=== PATIENT | female | born 1985 | race Caucasian/White ===

== ENCOUNTER 2016-05-16 12:40 | Emergency (ER) | payer OTHER, MEDICAID ==
--- NOTE | 2016-05-16 13:08 | ER Document Report ---
ED Medical Screen (RME) - General Chief Complaint: Leg Pain Stated Complaint: FEVER/POSSIBLE CELLULITIS Notes: This 31-year-old female patient comes in complaining of possible cellulitis to the right leg. She has a long history of a venous stasis ulcer treated at wound care clinic on the right lower extremity. That ulcer had cleared up. 3 days ago she was at a birthday [employer] and possibly contacted hint. The right medial proximal lower leg had a red patch which has since progressed to much of the leg. There is extreme itching. There is now pain also. Exam suggests this may be a rooster dermatitis with complicating cellulitis. I have greeted and performed a rapid initial assessment of this patient. A comprehensive ED assessment and evaluation of the patient, analysis of test results and completion of the medical decision making process will be conducted by additional ED providers. TRAVEL OUTSIDE OF THE [place] IN LAST 30 DAYS: No - Related Data Allergies/Adverse Reactions: latex [Latex] Allergy (Mild, Verified 03/05/15 18:19) Hives magnesium Allergy (Verified 05/16/16 12:51) Past Medical History - Past Medical History Cardiac Medical History: Reports: Hx Hypercholesterolemia, Hx Hypertension Pulmonary Medical History: Reports: Hx Bronchitis, Hx Pneumonia Denies: Hx Tuberculosis Endocrine Medical History: Reports: Hx Diabetes Mellitus Type 2 - gestational Renal/ Medical History: Reports: Hx Kidney Stones, Hx Ovarian Cysts. Denies: Hx Peritoneal Dialysis Musculoskeltal Medical History: Reports Hx Musculoskeletal Trauma Psychiatric Medical History: Reports: Hx Anxiety Past Surgical History: Reports: Hx Section, Hx Tonsillectomy - adnoids. Denies: Hx Pacemaker - Immunizations Immunizations up to date: Yes Hx Diphtheria, Pertussis, Tetanus Vaccination: Yes - < 5yrs, unknown date Physical Exam - Vital signs Vitals: Temp Pulse Resp BP Pulse Ox 98.5 F 114 H 16 131/84 H 99 05/16/16 12:53 05/16/16 12:53 05/16/16 12:53 05/16/16 12:53 05/16/16 12:53 Course - Vital Signs Vital signs: Temp Pulse Resp BP Pulse Ox 98.5 F 114 H 16 131/84 H 99 05/16/16 12:53 05/16/16 12:53 05/16/16 12:53 05/16/16 12:53 05/16/16 12:53
[2016-05-16 13:37] LABS: ABSOLUTE BASOPHILS # (AUTO) 0.1 10^3/uL (0.0-0.2); ABSOLUTE LYMPHOCYTES (AUTO) 2.3 10^3/uL (0.5-4.7); ABSOLUTE NEUT (AUTO) 8.6 10^3/uL (1.7-8.2); BASOPHILS % (AUTO) 0.6 % (0-2); EOSINOPHILS % (AUTO) 0.1 % (0-6); HEMATOCRIT 38.2 % (36.0-47.0); HEMOGLOBIN 13.3 g/dL (12.0-15.5); HGB HCT DIFFERENCE 1.7; LYMPHOCYTES % (AUTO) 19.4 % (13-45); MEAN CORPUSCULAR HEMOGLOBIN 28.6 pg (27.0-33.4); MEAN CORPUSCULAR HGB CONC 34.9 g/dL (32.0-36.0); MEAN CORPUSCULAR VOLUME 82 fl (80-97); MONOCYTES % (AUTO) 8.2 % (3-13); RED BLOOD COUNT 4.66 10^6/uL (3.72-5.28); RED CELL DISTRIBUTION WIDTH 14.7 % (11.5-14.0); SEGMENTED NEUTROPHILS % (AUTO) 71.7 % (42-78); WHITE BLOOD COUNT 12.1 10^3/uL (4.0-10.5)
[2016-05-16 13:52] LABS: ALANINE AMINOTRANSFERASE 29 U/L (9-52); ALBUMIN 4.3 g/dL (3.5-5.0); ALKALINE PHOSPHATASE 84 U/L (38-126); ANION GAP 15 (5-19); ASPARTATE AMINO TRANSFERASE 22 U/L (14-36); BILIRUBIN,DIRECT 0.5 mg/dL (0.0-0.4); BLOOD UREA NITROGEN 12 mg/dL (7-20); CALCIUM 9.4 mg/dL (8.4-10.2); CARBON DIOXIDE 21 mmol/L (22-30); CHLORIDE 104 mmol/L (98-107); GLUCOSE 127 mg/dL (75-110); POTASSIUM 4.2 mmol/L (3.6-5.0); SODIUM 139.8 mmol/L (137-145); TOTAL PROTEIN 8.1 g/dL (6.3-8.2)
[2016-05-16] MEDS ORDERED: HYDROCODONE/ACETAMINOPHEN 5-325 MG TABLET PO ONE (16:47)
[2016-05-16] MEDS ORDERED: ACETAMINOPHEN 325 MG TABLET PO ONE (17:14)
[2016-05-16] MEDS ORDERED: SULFAMETHOXAZOLE/TRIMETHOPRIM 800-160 MG TABLET PO ONE (17:17)
[2016-05-16] MEDS ORDERED: PREDNISONE 20 MG TABLET PO ONE (17:17)
--- NOTE | 2016-05-16 18:26 | ER Document Report ---
ED Extremity Problem, Lower - General Chief Complaint: Leg Pain Stated Complaint: FEVER/POSSIBLE CELLULITIS Mode of Arrival: Ambulatory Information source: Patient Notes: 31 y/o F presents to ED complaining of redness, swelling, and pain to right lower leg. Patient reports 3 days ago thinks she came in contact with poison koki and had localized area of redness and itching which has increased over the last 3 days and has become painful and warm. Reports history of cellulitis to same area in the past with similar symptoms. Reports subjective fever, nausea/ vomiting, chest pain or shortness of breath. TRAVEL OUTSIDE OF THE [place] IN LAST 30 DAYS: No - HPI Patient complains to provider of: Pain, Swelling Location: Leg Onset/Duration: Persistent Quality of pain: Achy Severity: Moderate Pain Level: 4 Recent injury: No Exacerbated by: Movement, Walking Relieved by: Elevation, Rest - Related Data Allergies/Adverse Reactions: latex [Latex] Allergy (Mild, Verified 03/05/15 18:19) Hives magnesium Allergy (Verified 05/16/16 12:51) Past Medical History - General Information source: Patient - Social History Smoking Status: Current Every Day Smoker Chew tobacco use (# tins/day): No Frequency of alcohol use: None Drug Abuse: None Lives with: Family Family History: Reviewed & Not Pertinent Patient has suicidal ideation: No Patient has homicidal ideation: No - Past Medical History Cardiac Medical History: Reports: Hx Hypercholesterolemia, Hx Hypertension Pulmonary Medical History: Reports: Hx Bronchitis, Hx Pneumonia Denies: Hx Tuberculosis Endocrine Medical History: Reports: Hx Diabetes Mellitus Type 2 - gestational Renal/ Medical History: Reports: Hx Kidney Stones, Hx Ovarian Cysts. Denies: Hx Peritoneal Dialysis Musculoskeltal Medical History: Reports Hx Musculoskeletal Trauma Psychiatric Medical History: Reports: Hx Anxiety Past Surgical History: Reports: Hx Section, Hx Tonsillectomy - adnoids. Denies: Hx Pacemaker - Immunizations Immunizations up to date: Yes Hx Diphtheria, Pertussis, Tetanus Vaccination: Yes - < 5yrs, unknown date Review of Systems - Review of Systems Constitutional: No symptoms reported EENT: No symptoms reported Cardiovascular: No symptoms reported Respiratory: No symptoms reported Gastrointestinal: No symptoms reported Genitourinary: No symptoms reported Female Genitourinary: No symptoms reported Musculoskeletal: See HPI Skin: No symptoms reported Hematologic/Lymphatic: No symptoms reported Neurological/Psychological: No symptoms reported -: Yes All other systems reviewed and negative Physical Exam - Vital signs Vitals: Temp Pulse Resp BP Pulse Ox 98.5 F 114 H 16 131/84 H 99 05/16/16 12:53 05/16/16 12:53 05/16/16 12:53 05/16/16 12:53 05/16/16 12:53 - General General appearance: Appears well, Alert In distress: None - HEENT Head: Normocephalic, Atraumatic Eyes: Normal Conjunctiva: Normal Pupils: PERRL - Respiratory Respiratory status: No respiratory distress Chest status: Nontender Breath sounds: Normal Chest palpation: Normal - Cardiovascular Rhythm: Regular Heart sounds: Normal auscultation Murmur: No Pulses: Normal: Radial, Posterior tibial, Dorsalis pedis Normal capillary refill: Yes - Abdominal Inspection: Normal Distension: No distension Bowel sounds: Normal Tenderness: Nontender Organomegaly: No organomegaly - Back Back: Normal, Nontender - Extremities General upper extremity: Normal inspection, Nontender, Normal color, Normal ROM , Normal strength, Normal temperature. No: Edema General lower extremity: Normal inspection, Nontender, Normal color, Normal ROM , Normal strength, Normal temperature, Normal weight bearing, Other - mild localized diffuse erythema, warmth, and tenderness to anterior lateral right lower leg from upper tib-fib area to ankle. Negative Homans sign. Distal neurovascular function intact with immediate capillary refill and palpable pulses. Sensation intact. No fluctuance, drainage, or weeping.. No: Edema, Edda's sign Course - Re-evaluation Re-evalutation: 05/16/16 18:15 Patient hemodynamically stable, afebrile, no distress. Patient presentation suggestive of contact dermatitis versus mild superimposed cellulitis at this time. No medication of abscess or DVT. Patient appears stable for discharge and agrees with home care, follow-up, strict ED return precautions. Patient presentation, findings, ED care, and plan discussed with ED physician Dr. Choe who evaluated patient in the ED and concurs with evaluation and treatment. - Vital Signs Vital signs: Temp Pulse Resp BP Pulse Ox 99.1 F 108 H 19 134/74 H 97 05/16/16 18:45 05/16/16 18:45 05/16/16 18:45 05/16/16 18:45 05/16/16 18:45 - Laboratory Result Diagrams: 05/16/16 13:10 05/16/16 13:10 Laboratory results interpreted by me: 05/16/16 05/16/16 13:10 13:10 WBC 12.1 H RDW 14.7 H Absolute Neutrophils 8.6 H Carbon Dioxide 21 L Glucose 127 H Direct Bilirubin 0.5 H Discharge - Discharge Clinical Impression: Cellulitis Qualifiers: Site of cellulitis: extremity Site of cellulitis of extremity: lower extremity Laterality: right Qualified Code(s): L03.115 - Cellulitis of right lower limb Contact dermatitis Qualifiers: Contact dermatitis type: unspecified Contact dermatitis trigger: unspecified trigger Qualified Code(s): L25.9 - Unspecified contact dermatitis, unspecified cause Condition: Stable Disposition: HOME, SELF-CARE Instructions: Contact Dermatitis ([facility]), Trimethoprim-Sulfa ([facility]), Steroid Medication, Cellulitis ([facility]), Elevation & Warmth ([facility]), Oral Narcotic Medication ([facility]) Additional Instructions: Drink plenty of fluids. Monitor your blood sugar daily. Follow-up with your primary care provider in the next 1-2 days. Return to the emergency department for any worsening symptoms or concerns. Prescriptions: Hydrocodone/Acetaminophen [[place] 5-325 mg Tablet] 1 tab PO Q6H PRN #8 tablet PRN Reason: Prednisone [Deltasone 10 mg Tablet] 10 mg PO ASDIR PRN #21 tablet PRN Reason: Sulfamethoxazole/Trimethoprim [Bactrim Ds Tablet] 1 tab PO BID 10 Days Forms: Elevated Blood Pressure Referrals: LAKSHMI VILLALBA PA [NO LOCAL MD] - Follow up tomorrow
[2016-05-16 18:56] VITALS: BP 134/74
== END 2016-05-16 18:45 | disposition home or self-care (01) ==
LOC: ER 12:40
DX: L03.115 Cellulitis of right lower limb (principal); L25.9 Unspecified contact dermatitis, unspecified cause; M79.604 Pain in right leg; F17.200 Nicotine dependence, unspecified, uncomplicated; E78.00 Pure hypercholesterolemia, unspecified; I10 Essential (primary) hypertension; Z87.442 Personal history of urinary calculi; Z91.040 Latex allergy status
CPT/HCPCS: 99283; 36415; 84703; 85025; 80053; J7512

== ENCOUNTER 2017-05-16 17:37 | Inpatient (IN) | payer OTHER, MEDICAID ==
[2017-05-16] MEDS ORDERED: ONDANSETRON HCL INJ/PF 4 MG/2 ML SDV IV ONE (18:35)
[2017-05-16] MEDS ORDERED: MORPHINE SULFATE 10 MG/ML INJ IV ONE (18:35)
[2017-05-16] MEDS ORDERED: NORMAL SALINE 1000 ML 1,000 ML IV ONE (18:35)
[2017-05-16] MEDS ORDERED: VANCOMYCIN HCL INJ 1000 MG VIAL IV ONE (18:36)
--- NOTE | 2017-05-16 18:37 | ER Document Report ---
ED Medical Screen (RME) - General Chief Complaint: Leg Pain Stated Complaint: FEVER, LEG PAIN Time Seen by Provider: 05/16/17 18:34 Notes: Patient states she has had cellulitis 7 times in the right lower extremity. She states once again she feels she has cellulitis that her lower extremity is erythematous and warm and painful. She states 2 weeks ago she was started on doxycycline and finished a one-week course but the cellulitis is now worse. TRAVEL OUTSIDE OF THE [place] IN LAST 30 DAYS: No - Related Data Allergies/Adverse Reactions: latex [Latex] Allergy (Mild, Verified 05/16/17 17:38) Hives magnesium Allergy (Verified 05/16/17 17:38) Home Medications: metformin Past Medical History - Social History Chew tobacco use (# tins/day): No Frequency of alcohol use: Social Drug Abuse: None - Past Medical History Cardiac Medical History: Reports: Hx Hypercholesterolemia, Hx Hypertension Pulmonary Medical History: Reports: Hx Bronchitis, Hx Pneumonia Denies: Hx Tuberculosis Endocrine Medical History: Reports: Hx Diabetes Mellitus Type 2 - gestational Renal/ Medical History: Reports: Hx Kidney Stones, Hx Ovarian Cysts. Denies: Hx Peritoneal Dialysis Musculoskeltal Medical History: Reports Hx Musculoskeletal Trauma Psychiatric Medical History: Reports: Hx Anxiety Past Surgical History: Reports: Hx Section, Hx Tonsillectomy - adnoids , Hx Tubal Ligation. Denies: Hx Pacemaker - Immunizations Immunizations up to date: Yes Hx Diphtheria, Pertussis, Tetanus Vaccination: Yes - < 5yrs, unknown date Physical Exam - Vital signs Vitals: Temp Pulse Resp BP Pulse Ox 99.8 F 124 H 24 H 138/103 H 95 05/16/17 17:48 05/16/17 17:48 05/16/17 17:48 05/16/17 17:48 05/16/17 17:48 Course - Vital Signs Vital signs: Temp Pulse Resp BP Pulse Ox 99.8 F 124 H 24 H 138/103 H 95 05/16/17 17:48 05/16/17 17:48 05/16/17 17:48 05/16/17 17:48 05/16/17 17:48 Doctor's Discharge - Discharge Referrals: LAKSHMI VILLALBA PA-C [Primary Care Provider] - Follow up as needed
[2017-05-16 19:44] LABS: ABSOLUTE BASOPHILS # (AUTO) 0.1 10^3/uL (0.0-0.2); ABSOLUTE LYMPHOCYTES (AUTO) 1.5 10^3/uL (0.5-4.7); ABSOLUTE MONOCYTES (AUTO) 0.9 10^3/uL (0.1-1.4); ABSOLUTE NEUT (AUTO) 13.5 10^3/uL (1.7-8.2); BASOPHILS % (AUTO) 0.5 % (0-2); EOSINOPHILS % (AUTO) 0.3 % (0-6); LYMPHOCYTES % (AUTO) 9.6 % (13-45); MEAN CORPUSCULAR HEMOGLOBIN 28.8 pg (27.0-33.4); MEAN CORPUSCULAR HGB CONC 34.1 g/dL (32.0-36.0); MEAN CORPUSCULAR VOLUME 85 fl (80-97); MONOCYTES % (AUTO) 5.4 % (3-13); PLATELET COUNT 285 10^3/uL (150-450); RED BLOOD COUNT 4.49 10^6/uL (3.72-5.28); RED CELL DISTRIBUTION WIDTH 13.7 % (11.5-14.0); SEGMENTED NEUTROPHILS % (AUTO) 84.2 % (42-78); TOTAL CELLS COUNTED % (AUTO) 100 %; WHITE BLOOD COUNT 16.1 10^3/uL (4.0-10.5)
[2017-05-16 19:46] LABS: VENOUS BLOOD BASE EXCESS 0.5 mmol/L; VENOUS BLOOD HCO3 23.5 mmol/L (20-32); VENOUS BLOOD PH 7.47 (7.30-7.42)
[2017-05-16 19:59] LABS: APPEARANCE,URINE SLIGHTLY-CLOUDY; BILIRUBIN,URINE NEGATIVE (NEGATIVE); COLOR,URINE YELLOW; GLUCOSE, URINE NEGATIVE (NEGATIVE); KETONES,URINE TRACE mg/dL (NEGATIVE); LEUKOCYTE ESTERASE,URINE NEGATIVE (NEGATIVE); NITRITE,URINE NEGATIVE (NEGATIVE); PROTEIN,URINE NEGATIVE (NEGATIVE); URINE SPECIFIC GRAVITY 1.018; UROBILINOGEN,URINE NEGATIVE mg/dL (<2.0)
[2017-05-16 20:00] LABS: ALANINE AMINOTRANSFERASE 48 U/L (9-52); ALBUMIN 4.2 g/dL (3.5-5.0); ALKALINE PHOSPHATASE 74 U/L (38-126); ANION GAP 12 (5-19); ASPARTATE AMINO TRANSFERASE 27 U/L (14-36); BILIRUBIN,DIRECT 0.5 mg/dL (0.0-0.4); BILIRUBIN,TOTAL 0.6 mg/dL (0.2-1.3); BLOOD UREA NITROGEN 13 mg/dL (7-20); CALCIUM 9.5 mg/dL (8.4-10.2); CARBON DIOXIDE 23 mmol/L (22-30); CHLORIDE 100 mmol/L (98-107); GLUCOSE 145 mg/dL (75-110); POTASSIUM 4.3 mmol/L (3.6-5.0); SODIUM 134.8 mmol/L (137-145); TOTAL PROTEIN 7.5 g/dL (6.3-8.2)
--- NOTE | 2017-05-16 22:05 | ER Document Report ---
ED General - General Chief Complaint: Leg Pain Stated Complaint: FEVER, LEG PAIN Time Seen by Provider: 05/16/17 18:34 TRAVEL OUTSIDE OF THE [place] IN LAST 30 DAYS: No - HPI Notes: Patient is a 32-year-old female with a history of type 2 diabetes and obstructive sleep apnea who presents to the ED complaining of her right anterior lower leg 1 day. Patient states that she also began having a fever today. Patient states that she has had cellulitis in this leg numerous times and was most recently placed on doxycycline 2 weeks ago which she finished a one -week course of. Patient states that that did seem to help, but symptoms worsened today. Patient has not noticed any other obvious abscess or purulent discharge. Patient states that she did have a history of MRSA. Patient states that she is otherwise eating and drinking without any difficulties. She is urinating normally and having normal bowel movements. The pain does not radiate. She denies any previous history of DVT or PE. Denies any IV drug use. Denies any neck pain, URI, sore throat, chest pain, palpitations, syncope , cough, shortness of breath, wheeze, dyspnea, abdominal pain, nausea/vomiting/ diarrhea, urinary retention, dysuria, hematuria, loss of control of bowel or bladder, numbness/tingling, saddle anesthesia, muscle paralysis/weakness. - Related Data Allergies/Adverse Reactions: latex [Latex] Allergy (Mild, Verified 05/16/17 17:38) Hives magnesium Allergy (Verified 05/16/17 17:38) Home Medications: metformin Past Medical History - Social History Smoking Status: Current Every Day Smoker Chew tobacco use (# tins/day): No Frequency of alcohol use: Social Drug Abuse: None Family History: Reviewed & Not Pertinent Patient has suicidal ideation: No Patient has homicidal ideation: No - Past Medical History Cardiac Medical History: Reports: Hx Hypercholesterolemia, Hx Hypertension Pulmonary Medical History: Reports: Hx Bronchitis, Hx Pneumonia Denies: Hx Tuberculosis Endocrine Medical History: Reports: Hx Diabetes Mellitus Type 2 - gestational Renal/ Medical History: Reports: Hx Kidney Stones, Hx Ovarian Cysts. Denies: Hx Peritoneal Dialysis Musculoskeltal Medical History: Reports Hx Musculoskeletal Trauma Psychiatric Medical History: Reports: Hx Anxiety Past Surgical History: Reports: Hx Section, Hx Tonsillectomy - adnoids , Hx Tubal Ligation. Denies: Hx Pacemaker - Immunizations Immunizations up to date: Yes Hx Diphtheria, Pertussis, Tetanus Vaccination: Yes - < 5yrs, unknown date Review of Systems - Review of Systems -: Yes All other systems reviewed and negative Physical Exam - Vital signs Vitals: Temp Pulse Resp BP Pulse Ox 99.8 F 124 H 24 H 138/103 H 95 05/16/17 17:48 05/16/17 17:48 05/16/17 17:48 05/16/17 17:48 05/16/17 17:48 - Notes Notes: PHYSICAL EXAMINATION: GENERAL: Well-appearing, well-nourished and in no acute distress. Obese. Answers questions appropriately. A&Ox4. HEAD: Atraumatic, normocephalic. NECK: Normal range of motion, supple without lymphadenopathy LUNGS: Breath sounds clear to auscultation bilaterally and equal. No wheezes rales or rhonchi. HEART: Regular rate and rhythm without murmurs, rubs, gallops. Musculoskeletal: Rt leg: FROM to passive/active. Strength 5+/5. N/v intact distal. Edda neg. Extremities: trace pitting edema to cellulitic area rt leg. Peripheral pulses 2+. Capillary refill less than 3 seconds. NEUROLOGICAL: Normal speech, normal gait. Normal sensory, motor exams PSYCH: Normal mood, normal affect. SKIN: erythema, warmth, edema, mild induration to the rt anterior and medial lower leg in large area. No obvious abscess or discharge. Course - Re-evaluation Re-evalutation: 05/16/17 22:10 Patient presented with a fever, since improved status post medication. Patient also presents with cellulitis right lower leg with a white count of 16.1, left shift. IV antibiotics started and other labs obtained including a blood culture. I will review this case with Dr. Arroyo for admission for IV antibiotics. Patient is in agreement with this plan. 05/16/17 22:15 Dr. Arroyo accepted patient for admission. - Vital Signs Vital signs: Temp Pulse Resp BP Pulse Ox 99.8 F 124 H 24 H 138/103 H 95 05/16/17 17:48 05/16/17 17:48 05/16/17 17:48 05/16/17 17:48 05/16/17 17:48 - Laboratory Result Diagrams: 05/16/17 19:10 05/16/17 19:10 Laboratory results interpreted by me: 05/16/17 05/16/17 05/16/17 19:10 19:10 19:10 WBC 16.1 H Seg Neutrophils % 84.2 H Lymphocytes % 9.6 L Absolute Neutrophils 13.5 H VBG pH 7.47 H VBG pCO2 33.0 L Sodium 134.8 L Glucose 145 H Direct Bilirubin 0.5 H Urine Ketones Urine Blood 05/16/17 19:10 WBC Seg Neutrophils % Lymphocytes % Absolute Neutrophils VBG pH VBG pCO2 Sodium Glucose Direct Bilirubin Urine Ketones TRACE H Urine Blood SMALL H Discharge - Discharge Clinical Impression: Cellulitis of right lower extremity Condition: Stable Disposition: ADMITTED OBSERVATION Admitting Provider: Hospitalist - Dr. Arroyo Unit Admitted: Telemetry Referrals: LAKSHMI VILLALBA PA-C [Primary Care Provider] - Follow up as needed
[2017-05-16] MEDS ORDERED: MAGNESIUM HYDROXIDE SUSP 30 ML UDCUP PO PRN (22:14)
[2017-05-16] MEDS ORDERED: MAG HYDROX/AL HYDROX/SIMETH SUSP 30 ML UDCUP PO PRN (22:14)
[2017-05-16] MEDS ORDERED: NORMAL SALINE 1000 ML 1,000 ML IV SCH (22:15)
[2017-05-16] MEDS ORDERED: INSULIN LISPRO 100 UNIT/ML 3 ML VIAL SUBCUT PRN (22:23)
[2017-05-16] MEDS ORDERED: GLUCAGON,HUMAN RECOMB 1 MG INJ IM PRN (22:23)
[2017-05-16] MEDS ORDERED: DEXTROSE 40% GEL 15 GM TUBE PO PRN ×2 (22:23)
[2017-05-16] MEDS ORDERED: DEXTROSE 50%-WATER 25 GM/50 ML DISP.SYRIN IV PRN ×2 (22:23)
[2017-05-17] MEDS: ACETAMINOPHEN 325 MG TABLET PO PRN ×2 (01:37→09:03)
[2017-05-17] MEDS: HEPARIN SOD (PORCINE) 5,000 UNIT/ML 1 ML SYRINGE SUBCUT SCH ×3 (05:08→22:02)
--- NOTE | 2017-05-17 06:13 | PDOC H&P ---
History of Present Illness Admission Date/PCP: 05/16/17 22:23 LAKSHMI VILLALBA PA-C Patient complains of: Leg pain and erythema History of Present Illness: DAYNA ALLEN is a 32 year old female with a past medical history of morbid obesity, obstructive sleep apnea, diabetes, right leg cellulitis. Patient presents with 24 hours of erythema and pain to the anterior aspect the right lower leg. No open ulcer or drainage. Patient admits multiple previous episodes and has used prophylactic antibiotics chronically. Patient otherwise feels well. She started on empiric vancomycin and referred to the hospitalist for admission. Past Medical History Cardiac Medical History: Reports: Hyperlipidema, Hypertension Pulmonary Medical History: Reports: Bronchitis, Pneumonia Denies: Tuberculosis Endocrine Medical History: Reports: Diabetes Mellitus Type 2 - gestational Psychiatric Medical History: Denies: Depression Past Surgical History Past Surgical History: Reports: Section, Tonsillectomy - adnoids, Tubal Ligation Denies: Pacemaker Social History Information Source: Patient Lives with: Spouse/Significant other Smoking Status: Current Every Day Smoker Cigarettes Packs Per Day: 1 Frequency of Alcohol Use: Rare Hx Recreational Drug Use: No Drugs: None Hx Prescription Drug Abuse: No - Advance Directive Resuscitation Status: Full Code Family History Family History: Hypertension Parental Family History Reviewed: Yes Children Family History Reviewed: Yes Sibling(s) Family History Reviewed.: Yes Medication/Allergy Home Medications: Glyburide/Metformin HCl [Glyburide-Metformin 2.5-500 mg] 1 tab PO BID 03/05/15 Vit/Iron Fum/Folic AC [ Tablet] 1 tab PO DAILY 03/05/15 Hydrocodone/Acetaminophen [[place] 5-325 mg Tablet] 1 tab PO Q6H PRN #8 tablet 12/22 Prednisone [Deltasone 10 mg Tablet] 10 mg PO ASDIR PRN #21 tablet 05/16/16 Sulfamethoxazole/Trimethoprim [Bactrim Ds Tablet] 1 tab PO BID 10 Days tablet 05/16/16 Allergies/Adverse Reactions: latex [Latex] Allergy (Mild, Verified 05/16/17 17:38) Hives magnesium Allergy (Verified 05/16/17 17:38) Review of Systems Constitutional: ABSENT: chills, fever(s), headache(s), weight gain, weight loss Eyes: ABSENT: visual disturbances Ears: ABSENT: hearing changes Cardiovascular: ABSENT: chest pain, dyspnea on exertion, edema, orthropnea, palpitations Respiratory: ABSENT: cough, hemoptysis Gastrointestinal: ABSENT: abdominal pain, constipation, diarrhea, hematemesis, hematochezia, nausea, vomiting Genitourinary: ABSENT: dysuria, hematuria Musculoskeletal: ABSENT: joint swelling Integumentary: ABSENT: rash, wounds Neurological: ABSENT: abnormal gait, abnormal speech, confusion, dizziness, focal weakness, syncope Psychiatric: ABSENT: anxiety, depression, homidical ideation, suicidal ideation Endocrine: ABSENT: cold intolerance, heat intolerance, polydipsia, polyuria Hematologic/Lymphatic: ABSENT: easy bleeding, easy bruising Physical Exam Vital Signs: Temp Pulse Resp BP Pulse Ox 100.8 F H 108 H 27 H 111/54 L 97 05/16/17 23:46 05/17/17 04:05 05/17/17 02:01 05/17/17 02:01 05/17/17 02:01 General appearance: PRESENT: cooperative, mild distress, morbidly obese. ABSENT : disheveled Head exam: PRESENT: atraumatic. ABSENT: normocephalic, other Eye exam: PRESENT: conjunctiva pink, EOMI, PERRLA. ABSENT: scleral icterus Ear exam: PRESENT: normal external ear exam Mouth exam: PRESENT: moist, tongue midline Neck exam: ABSENT: carotid bruit, JVD, lymphadenopathy, thyromegaly Respiratory exam: PRESENT: clear to auscultation justin. ABSENT: rales, rhonchi, wheezes Cardiovascular exam: PRESENT: RRR. ABSENT: diastolic murmur, rubs, systolic murmur Pulses: PRESENT: normal dorsalis pedis pul Vascular exam: PRESENT: normal capillary refill GI/Abdominal exam: PRESENT: normal bowel sounds, soft. ABSENT: distended, guarding, mass, organolmegaly, rebound, tenderness Rectal exam: PRESENT: deferred Extremities exam: PRESENT: tenderness - Right leg with 1+ edema, 8 x 10 cm circumferential erythema without ulcer, +1 edema Neurological exam: PRESENT: alert, awake, oriented to person, oriented to place , oriented to time, oriented to situation, CN II-XII grossly intact. ABSENT: motor sensory deficit Psychiatric exam: PRESENT: appropriate affect, normal mood. ABSENT: homicidal ideation, suicidal ideation Skin exam: PRESENT: warm - Anterior aspect of right leg with 8 x 10 cm circumferential erythema without ulcer. ABSENT: skin tears Assessment & Plan - Diagnosis (1) Cellulitis of right lower extremity Is this a current diagnosis for this admission?: Yes Plan: History of MRSA, vancomycin initiated, follow-up blood culture, elevation and symptomatic management. (2) Diabetes Is this a current diagnosis for this admission?: Yes Plan: Outpatient regiment minus metformin, Humalog sliding scale, evaluate A1c - Time Time Spent: 30 to 50 Minutes - Inpatient Certification Medical Necessity: Need Close Monitoring Due to Risk of Patient Decompensation
[2017-05-17 08:48] LABS: ABSOLUTE EOSINOPHILS # (AUTO) 0.1 10^3/uL (0.0-0.6); ABSOLUTE MONOCYTES (AUTO) 0.9 10^3/uL (0.1-1.4); ABSOLUTE NEUT (AUTO) 6.2 10^3/uL (1.7-8.2); BASOPHILS % (AUTO) 0.4 % (0-2); EOSINOPHILS % (AUTO) 1.2 % (0-6); HEMOGLOBIN 12.4 g/dL (12.0-15.5); LYMPHOCYTES % (AUTO) 21.7 % (13-45); MEAN CORPUSCULAR HGB CONC 34.4 g/dL (32.0-36.0); MEAN CORPUSCULAR VOLUME 85 fl (80-97); MONOCYTES % (AUTO) 9.4 % (3-13); PLATELET COUNT 236 10^3/uL (150-450); RED BLOOD COUNT 4.26 10^6/uL (3.72-5.28); RED CELL DISTRIBUTION WIDTH 13.7 % (11.5-14.0); SEGMENTED NEUTROPHILS % (AUTO) 67.3 % (42-78); TOTAL CELLS COUNTED % (AUTO) 100 %; WHITE BLOOD COUNT 9.3 10^3/uL (4.0-10.5)
[2017-05-17] MEDS: DOCUSATE SODIUM 100 MG CAPSULE PO SCH ×2 (09:03→17:21)
[2017-05-17 09:07] LABS: ANION GAP 11 (5-19); BLOOD UREA NITROGEN 10 mg/dL (7-20); CALCIUM 9.3 mg/dL (8.4-10.2); CARBON DIOXIDE 25 mmol/L (22-30); CHLORIDE 104 mmol/L (98-107); GLUCOSE 167 mg/dL (75-110); SODIUM 139.8 mmol/L (137-145)
[2017-05-17] MEDS: OXYCODONE-ACETAMINOPHEN 5-325 MG TABLET PO PRN ×2 (11:51→20:28)
[2017-05-17] MEDS ORDERED: METFORMIN HCL 500 MG TABLET PO ONE (12:00)
[2017-05-17] MEDS: CLINDAMYCIN 900 MG/D5W RTU 50 ML IV SCH ×2 (14:56→22:02)
[2017-05-17] MEDS: METFORMIN HCL 500 MG TABLET PO SCH (17:21)
--- NOTE | 2017-05-17 19:25 | PDOC PROGRESS REPORT ---
Subjective Progress Note for:: 05/17/17 Subjective:: Patient reports is her cellulitis is getting better after a single dose of vancomycin. Reason For Visit: DIABETIC LEG ULCER, CELLULITIS, VEINOUS STASIS Physical Exam Vital Signs: Temp Pulse Resp BP Pulse Ox 97.7 F 83 18 135/80 H 99 05/17/17 16:30 05/17/17 16:30 05/17/17 16:30 05/17/17 16:30 05/17/17 16:30 Intake & Output 05/16/17 05/17/17 05/18/17 06:59 06:59 06:59 Intake Total 100 1800 Output Total 600 Balance 100 1200 Weight 148.3 kg General appearance: PRESENT: no acute distress, well-developed, well-nourished Head exam: PRESENT: atraumatic, normocephalic Respiratory exam: PRESENT: clear to auscultation justin. ABSENT: rales, rhonchi, wheezes Cardiovascular exam: PRESENT: RRR. ABSENT: diastolic murmur, rubs, systolic murmur GI/Abdominal exam: PRESENT: other - Morbidly obese Extremities exam: PRESENT: tenderness, +1 edema Neurological exam: PRESENT: alert, awake, oriented to time, oriented to situation Results Laboratory Results: 05/17/17 08:14 05/17/17 08:14 05/17/17 05/17/17 08:14 08:14 WBC 9.3 RBC 4.26 Hgb 12.4 Hct 36.0 MCV 85 MCH 29.0 MCHC 34.4 RDW 13.7 Plt Count 236 Seg Neutrophils % 67.3 Lymphocytes % 21.7 Monocytes % 9.4 Eosinophils % 1.2 Basophils % 0.4 Absolute Neutrophils 6.2 Absolute Lymphocytes 2.0 Absolute Monocytes 0.9 Absolute Eosinophils 0.1 Absolute Basophils 0.0 Sodium 139.8 Potassium 4.0 Chloride 104 Carbon Dioxide 25 Anion Gap 11 BUN 10 Creatinine 0.57 Est GFR ( Amer) > 60 Est GFR (Non-Af Amer) > 60 Glucose 167 H Calcium 9.3 Assessment & Plan - Diagnosis (1) Morbid obesity Plan: Lifestyle modification advised (2) Cellulitis of right lower extremity Is this a current diagnosis for this admission?: Yes Plan: I switched her vancomycin to clindamycin IV. (3) Diabetes Qualifiers: Diabetes mellitus type: type 2 Is this a current diagnosis for this admission?: Yes Plan: Continue current regimen. - Time Time Spent with patient: 15-24 minutes - Inpatient Certification Medical Necessity: Need for IV Antibiotics - Plan Summary Plan Summary: Continue current antibiotics may be patient, being discharged with p.o. antibiotics after 72 hours of IV antibiotics.
--- NOTE | 2017-05-17 19:46 | PDOC CONSULTATION ---
History of Present Illness Admission Date/PCP: 05/16/17 22:23 LAKSHMI VILLALBA PA-C Patient complains of: pains right lower leg History of Present Illness: DAYNA ALLEN is a 32 year old female who had cllulitis right lower leg about 2 weeks ago and took antibiotics for one wee. Day [employer] noted redness along right anterior lower leg. Denies any trauma or insect bite. She is being referred to surgery for possible ulcer right foot. Past Medical History Cardiac Medical History: Reports: Hyperlipidema, Hypertension Pulmonary Medical History: Reports: Bronchitis, Pneumonia Denies: Tuberculosis Endocrine Medical History: Reports: Diabetes Mellitus Type 2 - gestational Psychiatric Medical History: Denies: Depression Past Surgical History Past Surgical History: Reports: Section, Tonsillectomy - adnoids, Tubal Ligation Denies: Pacemaker Social History Lives with: Spouse/Significant other Smoking Status: Current Every Day Smoker Cigarettes Packs Per Day: 1 Frequency of Alcohol Use: Rare Hx Recreational Drug Use: No Drugs: None Hx Prescription Drug Abuse: No - Advance Directive Resuscitation Status: Full Code Family History Family History: Hypertension Parental Family History Reviewed: Yes Children Family History Reviewed: No Sibling(s) Family History Reviewed.: No Medication/Allergy Home Medications: Metformin HCl [Glucophage 500 mg Tablet] 1,000 mg PO BIDACBS 05/17/17 Allergies/Adverse Reactions: latex [Latex] Allergy (Mild, Verified 05/16/17 17:38) Hives magnesium Allergy (Verified 05/16/17 17:38) Review of Systems Constitutional: PRESENT: as per HPI Eyes: PRESENT: other - no visual/hearing changes. Cardiovascular: PRESENT: other - no chest pains nor cough Gastrointestinal: PRESENT: other - no N/V Integumentary: PRESENT: erythema - right lower leg Neurological: PRESENT: other - no seizures Endocrine: PRESENT: other - no polyuria Allergic/Immunologic: PRESENT: other - eczema of left toes Physical Exam Vital Signs: Temp Pulse Resp BP Pulse Ox 97.7 F 83 18 135/80 H 99 05/17/17 16:30 05/17/17 16:30 05/17/17 16:30 05/17/17 16:30 05/17/17 16:30 Intake & Output 05/16/17 05/17/17 05/18/17 06:59 06:59 06:59 Intake Total 100 1800 Output Total 600 Balance 100 1200 Weight 148.3 kg General appearance: PRESENT: no acute distress, obese Head exam: PRESENT: atraumatic Eye exam: PRESENT: conjunctiva pink Mouth exam: PRESENT: moist Neck exam: PRESENT: full ROM Respiratory exam: PRESENT: clear to auscultation justin Cardiovascular exam: PRESENT: RRR Pulses: PRESENT: normal radial pulses Vascular exam: PRESENT: normal capillary refill GI/Abdominal exam: PRESENT: soft Rectal exam: PRESENT: deferred Extremities exam: PRESENT: tenderness - erythema right anterior lower leg, other - calluses on both heels but no ulcers noted on both feet Neurological exam: PRESENT: alert, oriented to person, oriented to place, oriented to time, oriented to situation Psychiatric exam: PRESENT: appropriate affect Skin exam: PRESENT: erythema, warm Results Laboratory Results: 05/17/17 08:14 05/17/17 08:14 05/17/17 05/17/17 08:14 08:14 WBC 9.3 RBC 4.26 Hgb 12.4 Hct 36.0 MCV 85 MCH 29.0 MCHC 34.4 RDW 13.7 Plt Count 236 Seg Neutrophils % 67.3 Lymphocytes % 21.7 Monocytes % 9.4 Eosinophils % 1.2 Basophils % 0.4 Absolute Neutrophils 6.2 Absolute Lymphocytes 2.0 Absolute Monocytes 0.9 Absolute Eosinophils 0.1 Absolute Basophils 0.0 Sodium 139.8 Potassium 4.0 Chloride 104 Carbon Dioxide 25 Anion Gap 11 BUN 10 Creatinine 0.57 Est GFR ( Amer) > 60 Est GFR (Non-Af Amer) > 60 Glucose 167 H Calcium 9.3 Assessment & Plan - Diagnosis (1) Cellulitis of right lower extremity Is this a current diagnosis for this admission?: Yes (2) Diabetes Qualifiers: Diabetes mellitus type: type 2 Is this a current diagnosis for this admission?: Yes - Time Time Spent: 30 to 50 Minutes - Plan Summary Plan Summary: continue antibiotic therapy No ulcer noted on both feet
[2017-05-17] MEDS: DIPHENHYDRAMINE HCL 25 MG CAPSULE PO PRN (22:11)
[2017-05-18] MEDS: HEPARIN SOD (PORCINE) 5,000 UNIT/ML 1 ML SYRINGE SUBCUT SCH ×3 (05:50→21:49)
[2017-05-18] MEDS: CLINDAMYCIN 900 MG/D5W RTU 50 ML IV SCH ×3 (05:55→21:51)
[2017-05-18] MEDS: METFORMIN HCL 500 MG TABLET PO SCH ×2 (08:06→16:50)
[2017-05-18] MEDS: DOCUSATE SODIUM 100 MG CAPSULE PO SCH ×2 (09:29→13:29)
[2017-05-18] MEDS: DIPHENHYDRAMINE HCL 25 MG CAPSULE PO PRN ×2 (13:36→21:51)
--- NOTE | 2017-05-18 17:17 | PDOC PROGRESS REPORT ---
Subjective Progress Note for:: 05/18/17 Subjective:: Patient reports is her cellulitis is getting better day by day. He is eager to go home but I convinced her to stay while moderate to complete 48 hours IV antibiotics. This morning also patient evaluated by Dr. Rincon and he recommended to continue antibiotic therapy. Reason For Visit: CELLULITIS OF RIGHT LEG Physical Exam Vital Signs: Temp Pulse Resp BP Pulse Ox 97.5 F 80 20 102/57 L 98 05/18/17 07:34 05/18/17 07:34 05/18/17 07:34 05/18/17 07:34 05/18/17 07:34 Intake & Output 05/17/17 05/18/17 05/19/17 06:59 06:59 06:59 Intake Total 100 2443 Output Total 1200 Balance 100 1243 Weight 148.3 kg 148.3 kg 148.3 kg General appearance: PRESENT: no acute distress, well-developed, well-nourished Head exam: PRESENT: atraumatic, normocephalic Respiratory exam: PRESENT: clear to auscultation justin. ABSENT: rales, rhonchi, wheezes Cardiovascular exam: PRESENT: RRR. ABSENT: diastolic murmur, rubs, systolic murmur GI/Abdominal exam: PRESENT: normal bowel sounds, soft. ABSENT: distended, guarding, mass, organolmegaly, rebound, tenderness Extremities exam: PRESENT: other - The erythema and swelling of the right leg has been receding distally Results Laboratory Results: 05/17/17 08:14 05/17/17 08:14 Assessment & Plan - Diagnosis (1) Morbid obesity Plan: Lifestyle modification advised (2) Cellulitis of right lower extremity Is this a current diagnosis for this admission?: Yes Plan: I I will continue her current antibiotic. (3) Diabetes Qualifiers: Diabetes mellitus type: type 2 Is this a current diagnosis for this admission?: Yes Plan: Continue current regimen. - Time Time Spent with patient: 25-34 minutes - Inpatient Certification Medical Necessity: Need for IV Antibiotics
[2017-05-18] MEDS: OXYCODONE-ACETAMINOPHEN 5-325 MG TABLET PO PRN (21:51)
[2017-05-19] MEDS: HEPARIN SOD (PORCINE) 5,000 UNIT/ML 1 ML SYRINGE SUBCUT SCH (05:49)
[2017-05-19] MEDS: CLINDAMYCIN 900 MG/D5W RTU 50 ML IV SCH (06:07)
[2017-05-19] MEDS: METFORMIN HCL 500 MG TABLET PO SCH (07:58)
[2017-05-19 09:11] VITALS: BP 115/68
--- NOTE | 2017-05-19 12:03 | PDOC DISCHARGE SUMMARY ---
General - Admit/Disc Date/PCP Admission Date/Primary Care Provider: 05/16/17 22:23 LAKSHMI VILLALBA PA-C Discharge Date: 05/19/17 - Discharge Diagnosis (2) Cellulitis of right lower extremity Is this a current diagnosis for this admission?: Yes (3) Diabetes Is this a current diagnosis for this admission?: Yes - Additional Information Resuscitation Status: Full Code Discharge Diet: Diabetic Discharge Activity: Activity As Tolerated Prescriptions: Clindamycin HCl 300 mg PO TID #20 capsule Home Medications: Metformin HCl [Glucophage 500 mg Tablet] 1,000 mg PO BIDACBS 05/17/17 Clindamycin HCl 300 mg PO TID #20 capsule 05/19/17 History of Present Illness History of Present Illness: DAYNA ALLEN is a 32 year old female with a past medical history of morbid obesity, obstructive sleep apnea, diabetes, right leg cellulitis. Patient presents with 24 hours of erythema and pain to the anterior aspect the right lower leg. No open ulcer or drainage. Patient admits multiple previous episodes and has used prophylactic antibiotics chronically. Patient otherwise feels well. She started on empiric vancomycin and referred to the hospitalist for admission. Hospital Course Hospital Course: Mr. Allen is 32 years old female patient with history of recurrent cellulitis due to underlying venous stasis. She is admitted for cellulitis of the right leg which extends from her ankle upward to her knee. Patient initially started on vancomycin but I switched it to clindamycin 900 mg IV 3 times daily and she responded well. Today I examined her involved leg and she erythema, swelling and tenderness has remarkably improved. Otherwise her hospital course is smooth and completely. I advised a dose of the patient to do lifestyle modification in the form of healthy diet regular exercise and weight loss and she is in agreement. Physical Exam Vital Signs: Temp Pulse Resp BP Pulse Ox 97.3 F 67 20 115/68 97 05/19/17 09:08 05/19/17 09:08 05/19/17 09:08 05/19/17 09:08 05/19/17 09:08 Intake & Output 05/18/17 05/19/17 05/20/17 06:59 06:59 06:59 Intake Total 2443 2139 Output Total 1200 Balance 1243 2139 Weight 148.3 kg 127.7 kg General appearance: PRESENT: no acute distress, well-developed, well-nourished Head exam: PRESENT: atraumatic, normocephalic Respiratory exam: PRESENT: clear to auscultation justin. ABSENT: rales, rhonchi, wheezes Cardiovascular exam: PRESENT: RRR. ABSENT: diastolic murmur, rubs, systolic murmur Extremities exam: PRESENT: other - Erythema and swelling involving the right leg which is improving. Results Laboratory Results: 05/17/17 08:14 05/17/17 08:14 Qualifiers - * PATEINT BEING DISCHARGED WITH ANY OF THE FOLLOWING DIAGNOSIS?: No
== END 2017-05-19 10:07 | disposition home or self-care (01) | DRG 603 ==
LOC: ER 17:37 → OBSVTOIN 22:23 → EH 22:23 → 5 05-17 04:04
PROVIDERS: ADMIT Internal Medicine; ATTEND Internal Medicine
DX: L03.115 Cellulitis of right lower limb (principal); Z68.43 Body mass index [BMI] 50.0-59.9, adult; E66.01 Morbid (severe) obesity due to excess calories; I87.8 Other specified disorders of veins; G47.33 Obstructive sleep apnea (adult) (pediatric); E78.00 Pure hypercholesterolemia, unspecified; I10 Essential (primary) hypertension; F17.210 Nicotine dependence, cigarettes, uncomplicated; Z91.048 Other nonmedicinal substance allergy status; Z91.040 Latex allergy status; Z79.899 Other long term (current) drug therapy; Z86.14 Personal history of Methicillin resistant Staphylococcus aureus infection; Z82.49 Family history of ischemic heart disease and other diseases of the circulatory system
CPT/HCPCS: 36415; 80048; 80053; 81001; 82803; 82962; 83036; 83605; 85025; 87040; 87086; 96361; 96365; 96366; 96375; 99284; J1644; J2270; J2405; J3370; J7030

== ENCOUNTER 2017-10-01 16:23 | Emergency (ER) | payer OTHER, MEDICAID ==
[2017-10-01] MEDS ORDERED: FENTANYL CITRATE INJ/PF 100 MCG/2 ML AMPUL IV ONE (17:22)
--- NOTE | 2017-10-01 17:24 | ER Document Report ---
ED Medical Screen (RME) - General Chief Complaint: Lower Abdominal Pain Stated Complaint: ABDOMINAL PAIN Time Seen by Provider: 10/01/17 17:15 Notes: 32-year-old female patient to the emergency department with chief complaint of abdominal pain. States present for approximately 3 days now. Came on suddenly. Mid abdomen. Radiating downward. No flank pain. No difficulty with urination. Pain is rated as 5/5 on a numeric pain scale. Sharp and stabbing in the mid abdomen area. I have greeted and performed a rapid initial assessment of this patient. A comprehensive ED assessment and evaluation of the patient, analysis of test results and completion of the medical decision making process will be conducted by additional ED providers. TRAVEL OUTSIDE OF THE [place] IN LAST 30 DAYS: No - Related Data Allergies/Adverse Reactions: latex [Latex] Allergy (Mild, Verified 05/16/17 17:38) Hives magnesium Allergy (Verified 05/16/17 17:38) Past Medical History - Past Medical History Cardiac Medical History: Reports: Hx Hypercholesterolemia, Hx Hypertension Pulmonary Medical History: Reports: Hx Bronchitis, Hx Pneumonia Denies: Hx Tuberculosis Endocrine Medical History: Reports: Hx Diabetes Mellitus Type 2 - gestational Renal/ Medical History: Reports: Hx Kidney Stones, Hx Ovarian Cysts. Denies: Hx Peritoneal Dialysis Musculoskeltal Medical History: Reports Hx Musculoskeletal Trauma Psychiatric Medical History: Reports: Hx Anxiety Denies: Hx Depression Past Surgical History: Reports: Hx Section, Hx Tonsillectomy - adnoids , Hx Tubal Ligation. Denies: Hx Pacemaker - Immunizations Immunizations up to date: Yes Hx Diphtheria, Pertussis, Tetanus Vaccination: Yes - < 5yrs, unknown date History of Influenza Vaccine for 11/2016 - 04/2017 Season: Refused Review of Systems - Review of Systems Notes: Review of systems positive for the following: Abdominal pain Physical Exam - Vital signs Vitals: Temp Pulse Resp BP Pulse Ox 98.4 F 116 H 18 147/102 H 97 10/01/17 16:31 10/01/17 16:31 10/01/17 16:31 10/01/17 16:31 10/01/17 16:31 Interpretation: Tachycardic - General General appearance: Appears well, Alert, Other - Uncomfortable appearing - Respiratory Respiratory status: No respiratory distress Chest status: Nontender Breath sounds: Normal Chest palpation: Normal - Cardiovascular Rhythm: Tachycardia Heart sounds: Normal auscultation Murmur: No - Abdominal Inspection: Other - Morbidly obese individual with large pannus. Distension: No distension Bowel sounds: Normal Tenderness: Tender - Moderate tenderness to palpation in the epigastric region. Mild voluntary guarding. Organomegaly: No organomegaly Course - Vital Signs Vital signs: Temp Pulse Resp BP Pulse Ox 98.4 F 116 H 18 147/102 H 97 10/01/17 16:31 10/01/17 16:31 10/01/17 16:31 10/01/17 16:31 10/01/17 16:31 Doctor's Discharge - Discharge Referrals: LAKSHMI VILLALBA PA-C [Primary Care Provider] - Follow up as needed
[2017-10-01 18:51] LABS: ABSOLUTE BASOPHILS # (AUTO) 0.2 10^3/uL (0.0-0.2); ABSOLUTE EOSINOPHILS # (AUTO) 0.3 10^3/uL (0.0-0.6); ABSOLUTE LYMPHOCYTES (AUTO) 2.6 10^3/uL (0.5-4.7); ABSOLUTE MONOCYTES (AUTO) 0.7 10^3/uL (0.1-1.4); ABSOLUTE NEUT (AUTO) 11.1 10^3/uL (1.7-8.2); BASOPHILS % (AUTO) 1.1 % (0-2); EOSINOPHILS % (AUTO) 2.3 % (0-6); HEMATOCRIT 42.2 % (36.0-47.0); HEMOGLOBIN 14.4 g/dL (12.0-15.5); LYMPHOCYTES % (AUTO) 17.4 % (13-45); MEAN CORPUSCULAR HEMOGLOBIN 28.6 pg (27.0-33.4); MEAN CORPUSCULAR HGB CONC 34.2 g/dL (32.0-36.0); MEAN CORPUSCULAR VOLUME 84 fl (80-97); MONOCYTES % (AUTO) 4.9 % (3-13); PLATELET COUNT 304 10^3/uL (150-450); RED BLOOD COUNT 5.04 10^6/uL (3.72-5.28); RED CELL DISTRIBUTION WIDTH 13.5 % (11.5-14.0); SEGMENTED NEUTROPHILS % (AUTO) 74.3 % (42-78); TOTAL CELLS COUNTED % (AUTO) 100 %; WHITE BLOOD COUNT 14.9 10^3/uL (4.0-10.5)
[2017-10-01] MEDS ORDERED: ONDANSETRON HCL INJ/PF 4 MG/2 ML SDV IV ONE (18:51)
[2017-10-01 19:00] LABS: APPEARANCE,URINE SLIGHTLY-CLOUDY; BILIRUBIN,URINE NEGATIVE (NEGATIVE); COLOR,URINE YELLOW; GLUCOSE, URINE NEGATIVE (NEGATIVE); KETONES,URINE NEGATIVE (NEGATIVE); LEUKOCYTE ESTERASE,URINE TRACE (NEGATIVE); NITRITE,URINE NEGATIVE (NEGATIVE); PROTEIN,URINE NEGATIVE (NEGATIVE); URINE SPECIFIC GRAVITY 1.026; UROBILINOGEN,URINE NEGATIVE mg/dL (<2.0)
[2017-10-01 19:23] LABS: ALANINE AMINOTRANSFERASE 40 U/L (9-52); ALKALINE PHOSPHATASE 77 U/L (38-126); ANION GAP 12 (5-19); ASPARTATE AMINO TRANSFERASE 35 U/L (14-36); BILIRUBIN,DIRECT 0.3 mg/dL (0.0-0.4); BILIRUBIN,TOTAL 0.5 mg/dL (0.2-1.3); BLOOD UREA NITROGEN 12 mg/dL (7-20); CALCIUM 9.4 mg/dL (8.4-10.2); CARBON DIOXIDE 23 mmol/L (22-30); CHLORIDE 103 mmol/L (98-107); GLUCOSE 188 mg/dL (75-110); LIPASE 30.2 U/L (23-300); POTASSIUM 5.1 mmol/L (3.6-5.0); SODIUM 138.4 mmol/L (137-145); TOTAL PROTEIN 7.4 g/dL (6.3-8.2)
--- NOTE | 2017-10-01 22:10 | RADIOLOGY REPORT (SQ) ---
EXAM DESCRIPTION: CT ABD/PELVIS WITH IV ORAL COMPLETED DATE/TIME: 10/01/2017 9:49 pm REASON FOR STUDY: abd pain COMPARISON: 07/23/2013 TECHNIQUE: CT scan of the abdomen performed with intravenous and with oral contrast using helical sc anning technique with dynamic intravenous contrast injection. Images reviewed with lung, soft tissue, and bone windows. Reconstructed coronal and sagittal MPR images reviewed. Delayed images for evaluat ion of the urinary system also acquired and evaluated. All images stored on PACS. All CT scanners at this facility use dose modulation, iterative reconstruction, and/or weight based d osing when appropriate to reduce radiation dose to as low as reasonably achievable (ALARA). [facility]: Dose Right [facility]: CareDose [facility]: Dose Right [facility]: Teradose 4D [facility]: [employer] CONTRAST TYPE AND DOSE: contrast/concentration: Isovue 350.00 mg/ml; Total Contrast Delivered: 100.0 ml; Total Saline Delivered: 50.0 ml RENAL FUNCTION: GFR > 60. RADIATION DOSE: CT Rad equipment meets quality standard of care and radiation dose reduction techniq ues were employed. CTDIvol: 21.1 mGy. DLP: 2267 mGy-cm. . LIMITATIONS: None. FINDINGS: LOWER CHEST: No significant findings. No nodules or infiltrates. LIVER: Diffuse fatty infiltration. Normal size. No masses. No dilated ducts. SPLEEN: Normal size. No focal lesions. PANCREAS: No masses. No significant calcifications. No adjacent inflammation or peripancreatic fluid collections. Pancreatic duct not dilated. GALLBLADDER: No calcified stones. No inflammatory changes to suggest cholecystitis. ADRENAL GLANDS: No significant masses or asymmetry. RIGHT KIDNEY AND URETER: No cysts identified. No solid masses. No calcified stones. No hydronephrosis or hydroureter. LEFT KIDNEY AND URETER: No cysts identified. No solid masses. No calcified stones. No hydronephrosis or hydroureter. AORTA AND VESSELS: No aneurysm. No dissection. Renal arteries, SMA, celiac without significant stenos is. RETROPERITONEUM: No bulky retroperitoneal adenopathy. BOWEL AND PERITONEAL CAVITY: Moderate wall thickening in multiple loops of ileum which are incarcerat ed and a multiloculated 20 cm ventral periumbilical hernia with multiple defects in the anterior abdo mimi wall. Oral contrast passes through these loops to the cecum. APPENDIX: Normal. ABDOMINAL WALL: No masses. No hernias. BONES: No significant or acute findings. OTHER: No other significant finding. IMPRESSION: Moderate wall thickening in multiple loops of ileum which are incarcerated in a multiloc ulated 20 cm ventral periumbilical hernia with multiple defects in the anterior abdominal wall. Oral contrast passes through these loops to the cecum. Surgical consultation is recommended. TECHNICAL DOCUMENTATION: JOB ID: [id number] [place]-72 Quality ID # [id number]: Final reports with documentation of one or more dose reduction techniques (e.g., Au tomated exposure control, adjustment of the mA and/or kV according to patient size, use of iterative reconstruction technique) 2010 [employer]- All Rights Reserved Reading location - IP/workstation name: Values of n
--- NOTE | 2017-10-01 23:10 | ER Document Report ---
ED General - General Chief Complaint: Lower Abdominal Pain Stated Complaint: ABDOMINAL PAIN Time Seen by Provider: 10/01/17 17:15 TRAVEL OUTSIDE OF THE [place] IN LAST 30 DAYS: No - HPI Notes: 32-year-old female presents with abdominal pain. Note patient was seen by the physician in triage, all studies and imaging are available at the time of my initial value patient. Patient indicates gradual onset abdominal pain beginning around Sunday. Waxing and waning but never completely goes away. Sometimes sharp and burning sometimes aching. She has had some associated nausea but no vomiting. No abdominal distention. Last bowel movement was actually today during her course in the ED and was loose like diarrhea. She has had 2 previous midline incisional C-sections, no history of bowel obstruction in the past no other surgeries. Nonradiating except as described. No other modifying factors, no other associated symptoms, no other provocative or palliative factors. - Related Data Allergies/Adverse Reactions: latex [Latex] Allergy (Mild, Verified 05/16/17 17:38) Hives magnesium Allergy (Verified 05/16/17 17:38) Past Medical History - Social History Smoking Status: Current Every Day Smoker Frequency of alcohol use: Social Family History: Hypertension Patient has suicidal ideation: No Patient has homicidal ideation: No - Medical History Notes: Includes morbid obesity - Past Medical History Cardiac Medical History: Reports: Hx Hypercholesterolemia, Hx Hypertension Pulmonary Medical History: Reports: Hx Bronchitis, Hx Pneumonia Denies: Hx Tuberculosis Endocrine Medical History: Reports: Hx Diabetes Mellitus Type 2 - gestational Renal/ Medical History: Reports: Hx Kidney Stones, Hx Ovarian Cysts. Denies: Hx Peritoneal Dialysis Musculoskeletal Medical History: Reports Hx Musculoskeletal Trauma Psychiatric Medical History: Reports: Hx Anxiety Denies: Hx Depression Past Surgical History: Reports: Hx Section, Hx Tonsillectomy - adnoids , Hx Tubal Ligation. Denies: Hx Pacemaker - Immunizations Immunizations up to date: Yes Hx Diphtheria, Pertussis, Tetanus Vaccination: Yes - < 5yrs, unknown date Review of Systems - Review of Systems Notes: Review of systems as in the history of present illness, otherwise negative x 10 systems. Physical Exam - Vital signs Vitals: Temp Pulse Resp BP Pulse Ox 98.4 F 116 H 18 147/102 H 97 10/01/17 16:31 10/01/17 16:31 10/01/17 16:31 10/01/17 16:31 10/01/17 16:31 - Notes Notes: General: Well developed . HEENT: Normocephalic, atraumatic. Pupils equal round reactive to light. No JVD. Chest: No trauma. Respiratory: Good air exchange, normal excursion. Cardiac: Regular rhythm. No murmurs or gallops. Abdomen: Grossly obese, firm. Midline ventral hernia noted that is reducible. No erythema or warmth. Mild midline tenderness.. Back: No asymmetry or gross abnormality. Motor: Grossly normal power and tone. Neurologic: Alert, nonfocal. Cranial nerves II-12 are intact. Sensation intact. Vascular: Well perfused. Normal peripheral pulses. Skin: No petechiae or purpura. Course - Re-evaluation Re-evalutation: 10/01/17 23:07 32-year-old female the after mentioned symptoms. Review of records and labs indicate leukocytosis otherwise normal renal function and chemistries. CT imaging shows a large somewhat loculated ventral hernia that is read as incarcerated but there is flow of contrast through to the cecum. General surgery consults placed, patient was evaluated. They recommend abdominal binder and is given referrals for local surgeons at the surgicalist feels would be appropriate for this complicated repair. She is advised to quit smoking, given abdominal binder. - Vital Signs Vital signs: Temp Pulse Resp BP Pulse Ox 98.4 F 116 H 18 147/102 H 97 10/01/17 16:31 10/01/17 16:31 10/01/17 16:31 10/01/17 16:31 10/01/17 16:31 - Laboratory Result Diagrams: 10/01/17 18:40 10/01/17 18:40 Laboratory results interpreted by me: 10/01/17 10/01/17 10/01/17 18:40 18:40 18:40 WBC 14.9 H Absolute Neutrophils 11.1 H Potassium 5.1 H Creatinine 0.49 L Glucose 188 H Urine Blood LARGE H Ur Leukocyte Esterase TRACE H Discharge - Discharge Clinical Impression: Ventral hernia Qualifiers: Obstruction and gangrene presence: without obstruction or gangrene Qualified Code(s): K43.9 - Ventral hernia without obstruction or gangrene Condition: Good Disposition: HOME, SELF-CARE Instructions: Hernia ([facility]) Additional Instructions: You can also follow up with Dr. Annelise Aleman at [facility] Referrals: LAKSHMI VILLALBA PA-C [Primary Care Provider] - Follow up as needed RHONA MANCINI MD [NO LOCAL MD] - Follow up as needed (Call tomorrow to arrange follow up.)
[2017-10-01 23:25] VITALS: BP 132/83
[2017-10-01] MEDS ORDERED: TRAMADOL HCL 50 MG TABLET PO ONE (23:25)
--- NOTE | 2017-10-01 23:31 | PDOC CONSULTATION ---
Consultation Consult Date: 10/01/17 Consult reason:: Abdominal wall hernia History of Present Illness Admission Date/PCP: LAKSHMI VILLALBA PA-C History of Present Illness: DAYNA ALLEN is a 32 year old female Who presents to the emergency department via ground rescue with a several day history of abdominal pain, and anorexia. She has had abdominal wall tenderness. She is not aware of having an abdominal wall hernia however. Was seen in the emergency department where she is found to have diffuse abdominal tenderness, leukocytosis, and CT scan findings with IV and oral contrast demonstrating large abdominal wall hernia. Surgery was consulted. Patient has a history of section 2010 and 2015 [facility] through a supraumbilical midline incision. She was sent to [facility] because she was felt to be high risk, and exceeded the at [facility]. Patient is a heavy smoker, and has COPD. Past Medical History Cardiac Medical History: Reports: Hyperlipidema, Hypertension Pulmonary Medical History: Reports: Bronchitis, Pneumonia Denies: Tuberculosis Endocrine Medical History: Reports: Diabetes Mellitus Type 2 - gestational Psychiatric Medical History: Denies: Depression Past Surgical History Past Surgical History: Reports: Section, Tonsillectomy - adnoids, Tubal Ligation Denies: Pacemaker Social History Smoking Status: Current Every Day Smoker Frequency of Alcohol Use: Rare Hx Recreational Drug Use: No Drugs: None Hx Prescription Drug Abuse: No Family History Family History: Hypertension Parental Family History Reviewed: Yes Children Family History Reviewed: Yes Sibling(s) Family History Reviewed.: Yes Medication/Allergy Home Medications: Metformin HCl [Glucophage 500 mg Tablet] 1,000 mg PO BIDACBS 05/17/17 Clindamycin HCl 300 mg PO TID #20 capsule 05/19/17 Allergies/Adverse Reactions: latex [Latex] Allergy (Mild, Verified 05/16/17 17:38) Hives magnesium Allergy (Verified 05/16/17 17:38) Review of Systems Constitutional: PRESENT: as per HPI Eyes: ABSENT: visual disturbances Ears: ABSENT: hearing changes Neurological: ABSENT: abnormal gait, abnormal speech, confusion, dizziness, focal weakness, syncope Physical Exam Vital Signs: Temp Pulse Resp BP Pulse Ox 97.8 F 91 18 132/83 H 99 10/01/17 20:20 10/01/17 20:20 10/01/17 20:20 10/01/17 20:20 10/01/17 20:20 Intake & Output 09/30/17 10/01/17 10/02/17 06:59 06:59 06:59 Weight 148.4 kg General appearance: PRESENT: mild distress Head exam: PRESENT: normocephalic Eye exam: PRESENT: EOMI Respiratory exam: PRESENT: rhonchi Cardiovascular exam: PRESENT: RRR Pulses: PRESENT: normal carotid pulses GI/Abdominal exam: PRESENT: other - Diffusely tender, morbidly obese, unable to reduce large hernia; midline scar above the umbilicus. No threatened skin no erythema Results Laboratory Results: 10/01/17 18:40 10/01/17 18:40 10/01/17 10/01/17 10/01/17 18:40 18:40 18:40 WBC 14.9 H RBC 5.04 Hgb 14.4 Hct 42.2 MCV 84 MCH 28.6 MCHC 34.2 RDW 13.5 Plt Count 304 Seg Neutrophils % 74.3 Lymphocytes % 17.4 Monocytes % 4.9 Eosinophils % 2.3 Basophils % 1.1 Absolute Neutrophils 11.1 H Absolute Lymphocytes 2.6 Absolute Monocytes 0.7 Absolute Eosinophils 0.3 Absolute Basophils 0.2 Sodium 138.4 Potassium 5.1 H Chloride 103 Carbon Dioxide 23 Anion Gap 12 BUN 12 Creatinine 0.49 L Est GFR ( Amer) > 60 Est GFR (Non-Af Amer) > 60 Glucose 188 H Calcium 9.4 Total Bilirubin 0.5 AST 35 ALT 40 Alkaline Phosphatase 77 Total Protein 7.4 Albumin 4.0 Lipase 30.2 Urine Color YELLOW Urine Appearance SLIGHTLY-CLOUDY Urine pH 5.0 Ur Specific [place] 1.026 Urine Protein NEGATIVE Urine Glucose (UA) NEGATIVE Urine Ketones NEGATIVE Urine Blood LARGE H Urine Nitrite NEGATIVE Ur Leukocyte Esterase TRACE H Urine WBC (Auto) 18 Urine RBC (Auto) 6 Impressions: Abdomen/Pelvis CT 10/01/17 00:00 IMPRESSION: Moderate wall thickening in multiple loops of ileum which are incarcerated in a multiloculated 20 cm ventral periumbilical hernia with multiple defects in the anterior abdominal wall. Oral contrast passes through these loops to the cecum. Surgical consultation is recommended. Assessment & Plan - Diagnosis (1) Ventral hernia Qualifiers: Obstruction and gangrene presence: without obstruction or gangrene Qualified Code(s): K43.9 - Ventral hernia without obstruction or gangrene Is this a current diagnosis for this admission?: Yes Plan: Impression: Patient has large chronic ventral wall hernia with incarceration; there is partial loss of intra-abdominal domain; the fascial defect is upwards of 16 cm to the left of midline. No evidence of bowel obstruction or overlying skin Recommendations: 1. I explained to the patient this is a serious problem. Despite her young age , she has multiple comorbidities rendering her at high risk for perioperative complications, including wound infection, hernia recurrence, and intestinal issues. 2. I suggested the patient get fitted with an abdominal binder, join a smoking cessation program, joint a weight loss program. 3. Patient does not need surgery tonight. 4. I suggested to the emergency department physician that the patient be referred to [facility] department of surgery, Dr. Annelise Maurice, or Dr. Den Stearns, [facility] (2) Morbid obesity Is this a current diagnosis for this admission?: Yes (3) COPD (chronic obstructive pulmonary disease) Is this a current diagnosis for this admission?: Yes (4) Smoker Is this a current diagnosis for this admission?: Yes (5) Sleep apnea Is this a current diagnosis for this admission?: Yes (6) Cellulitis of right lower extremity Is this a current diagnosis for this admission?: Yes
== END 2017-10-01 23:39 | disposition home or self-care (01) ==
LOC: ER 16:23
DX: K43.9 Ventral hernia without obstruction or gangrene (principal); R10.30 Lower abdominal pain, unspecified; R11.0 Nausea; F17.200 Nicotine dependence, unspecified, uncomplicated; E78.00 Pure hypercholesterolemia, unspecified; I10 Essential (primary) hypertension; Z91.040 Latex allergy status; Z87.442 Personal history of urinary calculi; Z98.51 Tubal ligation status
CPT/HCPCS: 99284; 96374; 36415; 83690; 85025; 81025; 80053; 81001; 74177; J3010

== ENCOUNTER 2018-06-11 10:01 | Emergency (ER) | payer OTHER, MEDICAID ==
[2018-06-11 11:15] LABS: APPEARANCE,URINE SLIGHTLY-CLOUDY; BILIRUBIN,URINE NEGATIVE (NEGATIVE); COLOR,URINE YELLOW; GLUCOSE, URINE NEGATIVE (NEGATIVE); KETONES,URINE NEGATIVE (NEGATIVE); LEUKOCYTE ESTERASE,URINE LARGE (NEGATIVE); NITRITE,URINE NEGATIVE (NEGATIVE); PROTEIN,URINE NEGATIVE (NEGATIVE); URINE SPECIFIC GRAVITY 1.015; UROBILINOGEN,URINE NEGATIVE mg/dL (<2.0)
[2018-06-11] MEDS ORDERED: DOXYCYCLINE HYCLATE 100 MG TABLET PO ONE (11:42)
[2018-06-11] MEDS ORDERED: LIDOCAINE 1% INJ-PF (10 MG/ML) 30 ML SDV INJ ONE (11:42)
[2018-06-11] MEDS ORDERED: CEFTRIAXONE 1 GM/D5W RTU 50 ML IV ONE (11:42)
[2018-06-11] MEDS ORDERED: CEFTRIAXONE INJ 1000 MG VIAL IM ONE (11:47)
[2018-06-11 12:07] VITALS: BP 118/54
--- NOTE | 2018-06-11 12:07 | ER Document Report ---
Entered by ESPERANZA DICKEY SCRIBE 06/11/18 1119 Acting as scribe for:ALONDRA QUACH MD ED General - General Chief Complaint: Abdominal Pain Stated Complaint: ABDOMINAL PAIN Time Seen by Provider: 06/11/18 10:40 Primary Care Provider: LAKSHMI VILLALBA PA-C [Primary Care Provider] - Follow up as needed Mode of Arrival: Ambulatory Information source: Patient Notes: Patient is a 33 year old female with a ventral hernia, HLD presents to the emergency department complaining of abdominal pain onset 1 week ago. Patient states she presented to her PCP, Dr. Glaser, 1 week ago complaining of urinary burning. She states she was diagnosed with an UTI and prescribed nitrofurantoin (100mg, 2x daily). Patient states she continues to have burning urination and lower abdominal pain that radiates into her vaginal region and lower back. She states the pain is relieved when standing in the shower when hot water is able to hit her lower back. She also states she has a history of kidney stones and believes she passed 2 kidney stones, 4 days ago, on 2 separate occasions. She states she noticed she passed something similar to a sesame seed on the 1st occasion and something similar to a watermelon seed on the second occasion. She states after both episodes she felt somewhat better, further stating some pressure was relieved. Patient states her last period was on May 07, 2018. She states she is currently late and this is abnormal for her. TRAVEL OUTSIDE OF THE [place] IN LAST 30 DAYS: No - Related Data Allergies/Adverse Reactions: latex [Latex] Allergy (Mild, Verified 06/11/18 10:20) Hives magnesium Allergy (Verified 06/11/18 10:20) Past Medical History - General Information source: Patient - Social History Smoking Status: Current Every Day Smoker Chew tobacco use (# tins/day): No Frequency of alcohol use: Social Drug Abuse: None Family History: Hypertension Patient has suicidal ideation: No Patient has homicidal ideation: No - Past Medical History Cardiac Medical History: Reports: Hx Hypercholesterolemia, Hx Hypertension Pulmonary Medical History: Reports: Hx Bronchitis, Hx Pneumonia Endocrine Medical History: Reports: Hx Diabetes Mellitus Type 2 - gestational Renal/ Medical History: Reports: Hx Kidney Stones, Hx Ovarian Cysts Musculoskeletal Medical History: Reports Hx Musculoskeletal Trauma Skin Medical History: Reports Hx Cellulitis - RLE Psychiatric Medical History: Reports: Hx Anxiety Past Surgical History: Reports: Hx Section, Hx Tonsillectomy - adnoids, Hx Tubal Ligation - Immunizations Immunizations up to date: Yes Hx Diphtheria, Pertussis, Tetanus Vaccination: Yes - < 5yrs, unknown date Review of Systems - Review of Systems Constitutional: No symptoms reported EENT: No symptoms reported Cardiovascular: No symptoms reported Respiratory: No symptoms reported Gastrointestinal: See HPI Genitourinary: See HPI Female Genitourinary: See HPI, Last menstrual period - May 07 Musculoskeletal: See HPI, Back pain Skin: No symptoms reported Hematologic/Lymphatic: No symptoms reported Neurological/Psychological: No symptoms reported -: Yes All other systems reviewed and negative Physical Exam - Vital signs Vitals: Temp Pulse Resp BP Pulse Ox 97.7 F 106 H 16 116/91 H 99 06/11/18 10:06/11/18 10:06/11/18 10:06/11/18 10:06/11/18 10:22 - Notes Notes: GENERAL: Alert, interacts well. No acute distress. HEAD: Normocephalic, atraumatic. EYES: Pupils equal, round, and reactive to light. Extraocular movements intact. ENT: Oral mucosa moist, tongue midline. NECK: Full range of motion. Supple. Trachea midline. LUNGS: Clear to auscultation bilaterally, no wheezes, rales, or rhonchi. No respiratory distress. HEART: Regular rate and rhythm. No murmurs, gallops, or rubs. ABDOMEN: Soft, morbidly obese. Tender to light palpation to the lower pannus, no erythema. Underneath pannus is an area of wetness and erythema consistent with intertrigo, no skin breakdown, not impressive. Tender to palpate underneath pannus. Non-distended. Bowel sounds present in all 4 quadrants. No guarding, rigidity, or rebound. EXTREMITIES: Moves all 4 extremities spontaneously. NEUROLOGICAL: Alert and oriented x3. Normal speech. PSYCH: Normal affect, normal mood. SKIN: Warm, dry, normal turgor. No rashes or lesions noted. BACK: Tender to palpate lower lumbar and sacral region, reproduces chief complaint. Course - Vital Signs Vital signs: Temp Pulse Resp BP Pulse Ox 97.7 F 106 H 16 116/91 H 99 06/11/18 10:19 10:22 06/11/18 10:22 06/11/18 10:22 06/11/18 10:22 - Laboratory Laboratory results interpreted by me: 06/11/18 10:37 Ur Leukocyte Esterase LARGE H Discharge - Discharge Clinical Impression: Urinary tract infection Qualifiers: Urinary tract infection type: acute cystitis Hematuria presence: without hematuria Qualified Code(s): N30.00 - Acute cystitis without hematuria Low back pain Qualifiers: Chronicity: acute Back pain laterality: bilateral Sciatica presence: without sciatica Qualified Code(s): M54.5 - Low back pain Condition: Stable Disposition: HOME, SELF-CARE Additional Instructions: Urinary Tract Infection: Your evaluation indicates that you have a urinary tract infection. This is due to germs growing in the bladder. This is a common problem. This infection usually responds quickly to antibiotics. Your antibiotic should be taken exactly as prescribed. Drink plenty of fluids -- three to four quarts a day. Occasionally, a bladder anesthetic will be prescribed to help stop the feeling of urgency until the antibiotic has a chance to clear the infection. This may cause your urine to be dark orange. Certain urine infections require a culture. If the doctor obtained a culture, the results will be back in two days. You should call to see if a change in treatment is needed. A repeat urinalysis after you finish treatment is often recommended. The physician will let you know if further testing is required. Call the doctor if you develop fever, chills, flank pain, inability to urinate, or blood in the urine. Low Back Pain: Three out of every four people will have an episode of disabling back pain during their lifetime. Most commonly the pain is due to straining of the muscles and ligaments in the low back. Usual treatment includes: (1) Rest on a firm surface. Avoid lying on your stomach. (2) Ice pack the painful area. After a few days, gentle heat may be used intermittently to relax the area, or ice packs can be continued. (3) Medication may be needed -- muscle relaxers and antiinflammatory medicines are commonly used. (4) As the back improves, exercises are prescribed to strengthen the back and abdominal muscles. Your doctor will advise you on the proper care for your back at each stage in your recovery. You may be better in a few days -- or healing may take several weeks. If new symptoms of a "herniated disc" (radiation of pain, numbness, or tingling down the back of the leg or weakness in the leg) occur, you should be re-examined. Further testing may be necessary. Take the medications as prescribed. Drink plenty of fluids. Use moist heat and take Motrin or Aleve for your low back pain. Keep the area under your abdominal pannus dry by using powder and exposed to air--using a fan while lifting up the skin will be helpful. Follow-up with your primary care provider if not improving. RETURN TO THE EMERGENCY ROOM IF ANY NEW OR WORSENING SYMPTOMS. Prescriptions: Doxycycline Hyclate 100 mg PO BID #14 tablet. Referrals: LAKSHMI VILLALBA PA-C [Primary Care Provider] - Follow up as needed Shahanaibroberta Attestation: 06/11/18 11:51 I personally performed the services described in the documentation, reviewed and edited the documentation which was dictated to the scribe in my presence, and it accurately records my words and actions. I personally performed the services described in the documentation, reviewed and edited the documentation which was dictated to the scribe in my presence, and it accurately records my words and actions.
== END 2018-06-11 12:20 | disposition home or self-care (01) ==
LOC: ER 10:01
DX: N30.00 Acute cystitis without hematuria (principal); M54.5 Low back pain; R10.9 Unspecified abdominal pain; F17.200 Nicotine dependence, unspecified, uncomplicated; I10 Essential (primary) hypertension; E78.00 Pure hypercholesterolemia, unspecified; Z91.040 Latex allergy status; Z87.442 Personal history of urinary calculi; Z98.51 Tubal ligation status
CPT/HCPCS: 99284; 96372; 87086; 81025; 81001; J3490; J0696

== ENCOUNTER 2019-08-06 21:38 | Emergency (ER) | payer OTHER, MEDICAID ==
[2019-08-06] MEDS ORDERED: CLINDAMYCIN 600 MG/D5W RTU 600 MG/50 ML RTUPB IV ONE (23:45)
--- NOTE | 2019-08-06 23:47 | ER Document Report ---
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 She denies any acute trauma or injury. She states she does have a 4-year-old that climbs on her leg and sometimes his toenails will break open the sores. She denies any fevers. No recent antibiotics. Denies . PE: Alert and oriented x3. Mild distress noted. Lungs: Clear to auscultation without rales rhonchi wheezes. Heart: Regular rate rhythm without murmurs rubs or gallops. Right santos with a large area of erythema. There are green scabs noted with purulent drainage noted. The area is warm but not tender. Palpation. I have greeted and performed a rapid initial assessment of this patient. A comprehensive ED assessment and evaluation of the patient, analysis of test results and completion of the medical decision making process will be conducted by additional ED providers. I have specifically instructed the patient or family members with the patient to immediately return to any nursing staff should anything change in the patient's condition or with their chief complaint. TRAVEL OUTSIDE OF THE [place] IN LAST 30 DAYS: No - Related Data Allergies/Adverse Reactions: latex [Latex] Allergy (Mild, Verified 06/11/18 10:20) Hives magnesium Allergy (Verified 06/11/18 10:20) Past Medical History - Past Medical History Cardiac Medical History: Reports: Hx Hypercholesterolemia, Hx Hypertension Pulmonary Medical History: Reports: Hx Bronchitis, Hx Pneumonia Denies: Hx Tuberculosis Endocrine Medical History: Reports: Hx Diabetes Mellitus Type 2 - gestational Renal/ Medical History: Reports: Hx Kidney Stones, Hx Ovarian Cysts. Denies: Hx Peritoneal Dialysis Musculoskeltal Medical History: Reports Hx Musculoskeletal Trauma Skin Medical History: Reports Hx Cellulitis - RLE Psychiatric Medical History: Reports: Hx Anxiety Denies: Hx Depression Past Surgical History: Reports: Hx Section, Hx Tonsillectomy - adnoids, Hx Tubal Ligation. Denies: Hx Pacemaker - Immunizations Immunizations up to date: Yes Hx Diphtheria, Pertussis, Tetanus Vaccination: Yes - < 5yrs, unknown date Physical Exam - Vital signs Vitals: Temp Pulse Resp BP Pulse Ox 97.9 F 85 17 147/63 H 97 08/06/19 21:47 08/06/19 21:47 08/06/19 21:47 08/06/19 21:47 08/06/19 21:47 Course - Vital Signs Vital signs: Temp Pulse Resp BP Pulse Ox 97.9 F 85 17 147/63 H 97 08/06/19 21:47 08/06/19 21:47 08/06/19 21:47 08/06/19 21:47 08/06/19 21:47 Doctor's Discharge - Discharge Referrals: LAKSHMI VILLALBA PA-C [Primary Care Provider] - Follow up as needed
[2019-08-07 00:10] LABS: ABSOLUTE BASOPHILS # (AUTO) 0.1 10^3/uL (0.0-0.2); ABSOLUTE EOSINOPHILS # (AUTO) 0.4 10^3/uL (0.0-0.6); ABSOLUTE LYMPHOCYTES (AUTO) 3.4 10^3/uL (0.5-4.7); ABSOLUTE MONOCYTES (AUTO) 0.5 10^3/uL (0.1-1.4); ABSOLUTE NEUT (AUTO) 5.7 10^3/uL (1.7-8.2); BASOPHILS % (AUTO) 1.2 % (0-2); EOSINOPHILS % (AUTO) 4.4 % (0-6); HEMATOCRIT 37.8 % (36.0-47.0); HEMOGLOBIN 12.9 g/dL (12.0-15.5); LYMPHOCYTES % (AUTO) 32.9 % (13-45); MEAN CORPUSCULAR HEMOGLOBIN 28.9 pg (27.0-33.4); MEAN CORPUSCULAR VOLUME 85 fl (80-97); MONOCYTES % (AUTO) 5.3 % (3-13); PLATELET COUNT 288 10^3/uL (150-450); RED BLOOD COUNT 4.45 10^6/uL (3.72-5.28); RED CELL DISTRIBUTION WIDTH 13.9 % (11.5-14.0); SEGMENTED NEUTROPHILS % (AUTO) 56.2 % (42-78); TOTAL CELLS COUNTED % (AUTO) 100 %; WHITE BLOOD COUNT 10.2 10^3/uL (4.0-10.5)
[2019-08-07 00:32] LABS: ALBUMIN 3.8 g/dL (3.5-5.0); ALKALINE PHOSPHATASE 90 U/L (38-126); ANION GAP 5 (5-19); ASPARTATE AMINO TRANSFERASE 21 U/L (14-36); BILIRUBIN,TOTAL 0.3 mg/dL (0.2-1.3); BLOOD UREA NITROGEN 16 mg/dL (7-20); CALCIUM 9.3 mg/dL (8.4-10.2); CARBON DIOXIDE 27 mmol/L (22-30); CHLORIDE 103 mmol/L (98-107); GLUCOSE 208 mg/dL (75-110); POTASSIUM 4.5 mmol/L (3.6-5.0); TOTAL PROTEIN 6.9 g/dL (6.3-8.2)
--- NOTE | 2019-08-07 07:12 | ER Document Report ---
ED Skin Rash/Insect Bite/Abscs - General Chief Complaint: Wound Infection Stated Complaint: RIGHT LEG SKIN PROBLEM Time Seen by Provider: 08/06/19 23:42 Primary Care Provider: Wound Care [Provider Group] - Follow up in 3-5 days ALICJA TRACEY PA-C [NO LOCAL MD] - Follow up in 3-5 days Mode of Arrival: Ambulatory Notes: Patient is a 34-year-old female who presents emergency department with a chief complaint of right lower leg redness and purulent drainage. Patient has history of MRSA in the past. Patient states that she noticed that she had this yesterday, but states that she might of had it for longer. Patient states that her dog and children crawl on her leg. Denies any fever, body aches, or chills. TRAVEL OUTSIDE OF THE [place] IN LAST 30 DAYS: No - Related Data Allergies/Adverse Reactions: latex [Latex] Allergy (Mild, Verified 06/11/18 10:20) Hives magnesium Allergy (Verified 06/11/18 10:20) Home Medications: metformin. junivia. Glipiside. [place] 3. atoravastatin. lantus Past Medical History - General Information source: Patient - Social History Smoking Status: Current Every Day Smoker Chew tobacco use (# tins/day): No Frequency of alcohol use: Social Drug Abuse: None Family History: Hypertension - Past Medical History Cardiac Medical History: Reports: Hx Hypercholesterolemia, Hx Hypertension Pulmonary Medical History: Reports: Hx Bronchitis, Hx Pneumonia Denies: Hx Tuberculosis Endocrine Medical History: Reports: Hx Diabetes Mellitus Type 2 - gestational Renal/ Medical History: Reports: Hx Kidney Stones, Hx Ovarian Cysts. Denies: Hx Peritoneal Dialysis Musculoskeletal Medical History: Reports Hx Musculoskeletal Trauma Skin Medical History: Reports Hx Cellulitis - RLE Psychiatric Medical History: Reports: Hx Anxiety Denies: Hx Depression Past Surgical History: Reports: Hx Section, Hx Tonsillectomy - adnoids, Hx Tubal Ligation. Denies: Hx Pacemaker - Immunizations Immunizations up to date: Yes Hx Diphtheria, Pertussis, Tetanus Vaccination: Yes - < 5yrs, unknown date Review of Systems - Review of Systems Notes: REVIEW OF SYSTEMS: CONSTITUTIONAL : Denies recent illness. Denies recent unintentional weight loss. Denies fever, chills, or sweats. EENT: Denies eye, ear, throat, or mouth pain, discharge, or symptoms. Denies nasal or sinus congestion. CARDIOVASCULAR: Denies chest pain. RESPIRATORY: Denies shortness of breath, cough, congestion, difficulty breathing, or wheezing. GASTROINTESTINAL: Denies nausea, vomiting, and diarrhea. Denies abdominal pain. Denies constipation. GENITOURINARY: Denies difficulty urinating, burning, blood in urine, urgency or frequency. MUSCULOSKELETAL: Denies neck and back pain. Denies joint pain or swelling. SKIN: See HPI. HEMATOLOGIC : Denies easy bruising or bleeding. LYMPHATIC: Denies swollen, painful, enlarged glands. NEUROLOGICAL: Denies no numbness or tingling denies weakness. Denies headache. Denies altered mental status. Denies alteration in speech. PSYCHIATRIC: Denies stress, anxiety, alteration in sleep patterns, or depression. All other systems reviewed and negative. Physical Exam - Vital signs Vitals: Temp Pulse Resp BP Pulse Ox 97.9 F 85 17 147/63 H 97 08/06/19 21:47 08/06/19 21:47 08/06/19 21:47 08/06/19 21:47 08/06/19 21:47 - Notes Notes: PHYSICAL EXAMINATION: GENERAL: Appears obese, no acute distress. HEAD: Normocephalic, atraumatic. EYES: PERRL, conjunctiva normal, all extraocular movements intact, sclera nonicteric ENT: Moist mucous membranes. NECK: Supple, no noticeable swelling, redness, rash. Normal range of motion. LUNGS: Equal breath sounds bilaterally and clear to auscultation. No wheezes rales or rhonchi. CARDIOVASCULAR: S1-S2, regular rate, regular rhythm. Radial pulses 2+, normal. ABDOMEN: Normoactive bowel sounds. Soft, nontender, no guarding, no rebound tenderness, and no masses palpated. EXTREMITIES: Normal strength and range of motion, no pitting or edema. No cyanosis. NEUROLOGICAL: Moves all extremities upon command. Strength 5/5 in all extremities. PSYCH: Normal mood, normal affect. SKIN: Warm, dry. Erythema noted to right lower extremity with crusted over yellow, green scabs. Course - Re-evaluation Re-evalutation: 08/07/19 07:08 Otology is unremarkable. No leukocytosis noted. Chemistries show a glucose of 2 8. Lactic is 1.3. I brought the ultrasound machine to bedside and did not appreciate any pockets of fluid on exam. Patient does not appear to be septic at this time. Vital signs are normal. We will start the patient on clindamycin. She will follow-up with her primary care provider and also follow- up with the wound clinic. She is in agreement with this plan. - Vital Signs Vital signs: Temp Pulse Resp BP Pulse Ox 97.5 F 75 16 144/83 H 97 08/07/19 06:14 08/07/19 06:14 08/07/19 06:14 08/07/19 06:14 08/07/19 06:14 - Laboratory Result Diagrams: 08/06/19 23:53 08/06/19 23:53 Laboratory results interpreted by me: 08/06/19 23:53 Sodium 135.3 L Glucose 208 H Discharge - Discharge Clinical Impression: Cellulitis Qualifiers: Site of cellulitis: extremity Site of cellulitis of extremity: lower extremity Laterality: right Qualified Code(s): L03.115 - Cellulitis of right lower limb Condition: Stable Disposition: HOME, SELF-CARE Additional Instructions: You were seen today in the emergency department for redness and open wounds. You are being started on antibiotics. Please follow-up with your primary care provider. Please see wound care. If the redness spreads, please return to the emergency department. Prescriptions: Clindamycin HCl [Cleocin 150 mg Capsule] 300 mg PO Q6 7 Days #56 capsule Forms: Return to Work Referrals: ALICJA TRACEY PA-C [NO LOCAL MD] - Follow up in 3-5 days Wound Care [Provider Group] - Follow up in 3-5 days
[2019-08-07] MEDS ORDERED: CLINDAMYCIN HCL 150 MG CAPSULE PO ONE (07:16)
[2019-08-07 07:37] VITALS: BP 130/79
== END 2019-08-07 07:39 | disposition home or self-care (01) ==
LOC: ER 21:38
DX: L03.115 Cellulitis of right lower limb (principal); F17.200 Nicotine dependence, unspecified, uncomplicated; E78.00 Pure hypercholesterolemia, unspecified; I10 Essential (primary) hypertension; E11.9 Type 2 diabetes mellitus without complications; Z86.14 Personal history of Methicillin resistant Staphylococcus aureus infection; Z79.4 Long term (current) use of insulin; Z79.899 Other long term (current) drug therapy; Z91.040 Latex allergy status; Z88.8 Allergy status to other drugs, medicaments and biological substances
CPT/HCPCS: 36415; 80053; 83605; 85025; 99283

== ENCOUNTER → 2019-08-26 | Outpatient (CLI) | payer OTHER, MEDICAID ==
--- NOTE | 2019-08-26 16:17 | RADIOLOGY REPORT (SQ) ---
EXAM DESCRIPTION: ARTERIAL LOWER EXTREM BILAT IMAGES COMPLETED DATE/TIME: 08/26/2019 3:55 pm REASON FOR STUDY: RT CALF ULCER L97.212 NON-PRESSURE CHRONIC ULCER OF RIGHT CALF W FAT LAYER COMPARISON: None. TECHNIQUE: Dynamic and static abdullahi scale and color images acquired of the lower extremity arteries. Additional selected spectral images recorded. LIMITATIONS: None. FINDINGS: RIGHT LEG: INFLOW ARTERIES: Normal, no obstruction evident. FEMORAL ARTERIES:Triphasic waveforms. Normal, no velocity elevation to suggest focal stenosis. Normal color Doppler evaluation. No aneurysm. POPLITEAL ARTERY:Triphasic waveforms. Normal, no velocity elevation to suggest focal stenosis. Normal color Doppler evaluation. No aneurysm. PATENT TIBIOPERONEAL TRUNK AND 3 VESSEL RUNOFF: Yes, normal vessels. OTHER: No other significant finding. LEFT LEG: INFLOW ARTERIES: Normal, no obstruction evident. FEMORAL ARTERIES:Triphasic waveforms. Normal, no velocity elevation to suggest focal stenosis. Normal color Doppler evaluation. No aneurysm. POPLITEAL ARTERY:Triphasic waveforms. Normal, no velocity elevation to suggest focal stenosis. Normal color Doppler evaluation. No aneurysm. PATENT TIBIOPERONEAL TRUNK AND 3 VESSEL RUNOFF: Yes, normal vessels. OTHER: No other significant finding. IMPRESSION: NORMAL BILATERAL LOWER EXTREMITY ARTERIAL DOPPLER. TECHNICAL DOCUMENTATION: JOB ID: [id number] 2010 [employer]- All Rights Reserved Reading location - IP/workstation name: [email or web address]
== END ==
LOC: SP 13:38
PROVIDERS: ATTEND Nurse Practitioner Family
DX: L97.212 Non-pressure chronic ulcer of right calf with fat layer exposed (principal)
CPT/HCPCS: 93925

== ENCOUNTER → 2019-09-16 | Outpatient (CLI) | payer OTHER, MEDICAID ==
[2019-09-16 11:21] LABS: ABSOLUTE BASOPHILS # (AUTO) 0.1 10^3/uL (0.0-0.2); ABSOLUTE EOSINOPHILS # (AUTO) 0.4 10^3/uL (0.0-0.6); ABSOLUTE LYMPHOCYTES (AUTO) 2.9 10^3/uL (0.5-4.7); ABSOLUTE MONOCYTES (AUTO) 0.7 10^3/uL (0.1-1.4); ABSOLUTE NEUT (AUTO) 6.9 10^3/uL (1.7-8.2); EOSINOPHILS % (AUTO) 3.5 % (0-6); HEMATOCRIT 39.3 % (36.0-47.0); HEMOGLOBIN 13.1 g/dL (12.0-15.5); LYMPHOCYTES % (AUTO) 26.3 % (13-45); MEAN CORPUSCULAR HEMOGLOBIN 28.4 pg (27.0-33.4); MEAN CORPUSCULAR HGB CONC 33.4 g/dL (32.0-36.0); MEAN CORPUSCULAR VOLUME 85 fl (80-97); PLATELET COUNT 281 10^3/uL (150-450); RED BLOOD COUNT 4.62 10^6/uL (3.72-5.28); SEGMENTED NEUTROPHILS % (AUTO) 63.2 % (42-78); TOTAL CELLS COUNTED % (AUTO) 100 %; WHITE BLOOD COUNT 10.9 10^3/uL (4.0-10.5)
[2019-09-16 11:49] LABS: ALBUMIN 3.7 g/dL (3.5-5.0); ALKALINE PHOSPHATASE 74 U/L (38-126); ANION GAP 8 (5-19); ASPARTATE AMINO TRANSFERASE 26 U/L (14-36); BILIRUBIN,TOTAL 0.4 mg/dL (0.2-1.3); BLOOD UREA NITROGEN 18 mg/dL (7-20); C-REACTIVE PROTEIN 19.4 mg/L (<10.0); CALCIUM 9.3 mg/dL (8.4-10.2); CARBON DIOXIDE 23 mmol/L (22-30); CHLORIDE 106 mmol/L (98-107); GLUCOSE 126 mg/dL (75-110); POTASSIUM 4.8 mmol/L (3.6-5.0)
[2019-09-16 12:00] LABS: ERYTHROCYTE SEDIMENTATION RATE 29 mm/hr (0-20)
--- NOTE | 2019-09-16 12:34 | RADIOLOGY REPORT (SQ) ---
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 NUMBER OF VIEWS: Two views. TECHNIQUE: Two radiographic images acquired of the right tibia and fibula to include the knee and an kle in at least one projection. LIMITATIONS: None. FINDINGS: MINERALIZATION: Normal. BONES: No acute fracture or dislocation. No worrisome bone lesions. SOFT TISSUES: Soft tissue ulcer is not well seen. OTHER: No other significant finding. IMPRESSION: There is no evidence of osteomyelitis. TECHNICAL DOCUMENTATION: JOB ID: [id number] [employer]- All Rights Reserved Reading location - IP/workstation name: [email or web address]
== END ==
LOC: OD 10:41
PROVIDERS: ATTEND Nurse Practitioner Family
DX: I87.321 Chronic venous hypertension (idiopathic) with inflammation of right lower extremity (principal); L97.212 Non-pressure chronic ulcer of right calf with fat layer exposed
CPT/HCPCS: 36415; 80053; 85025; 85652; 86140